=== PATIENT | female | born 1950 | race Caucasian/White ===

== ENCOUNTER 2016-12-02 11:38 | Emergency (ER) ==
[2016-12-02 11:45] VITALS: BP 165/86; TEMP 98.6; BMI 30.2
--- NOTE | 2016-12-02 12:02 | ED.PDOC ---
General ED Provider: Dr. MARINA OVALLE Chief Complaint: Shoulder Pain/Injury Stated Complaint: she pulled the mattress on saturday, on saturday she started having pain in rt shoulder blade area, today morning woke up and noticed some loss of gripp in rt hand. no slurry speach, Time Seen by Physician: 12:00 Mode of Arrival: Walk-In Information Source: Patient Primary Care Provider: KEARA JO Nursing and Triage Documentation Reviewed and Agree: Yes Musculoskeletal Complaint Exam - Shoulder Pain Complaint/Exam Mechanism of Injury: Reports: No known trauma Symptoms Are: Still present Timing: Constant Initial Severity: Mild Current Severity: Mild Location: Reports: Discrete Character: Reports: Dull, Aching Alleviating: Reports: Rest Aggravating: Reports: Movement, Lifting Associated Signs and Symptoms: Reports: Weakness, Numbness Non-Orthopedic Risk Factors: Reports: None DVT Risk Factors: Reports: None Septic Arthritis Risk Factors: Reports: None Related Surgical History: Reports: None Shoulder Findings: Absent: Swelling, Ecchymosis, Abnormal contour, Rotation Differential Diagnoses: Arthritis, Rotator Cuff Injury, Sprain, Other (stroke.) Review of Systems - Review Of Systems Constitutional: Reports: No symptoms Eyes: Reports: No symptoms Ears, Nose, Mouth, Throat: Reports: No symptoms Respiratory: Reports: No symptoms Cardiac: Reports: No symptoms GI: Reports: No symptoms : Reports: No symptoms Musculoskeletal: Reports: Back pain, Joint pain Skin: Reports: No symptoms Neurological: Reports: Weakness Endocrine: Reports: No symptoms Hematologic/Lymphatic: Reports: No symptoms All Other Systems: Reviewed and Negative Past Medical History - Past Medical History Previously Healthy: Yes Endocrine: Reports: None Cardiovascular: Reports: Hypertension Respiratory: Reports: None Hematological: Reports: None Gastrointestinal: Reports: Unknown Genitourinary: Reports: Kidney stones Neuro/Psych: Reports: None Musculoskeletal: Reports: Joint Pain (POST BILATERAL KNEE REPLACEMENT) Cancer: Reports: None Last Menstrual Period: NONE Other Pertinent Past Medical History: DIARHEA FEVER EMESIS 20 MIN AGO - Surgical History General Surgical History: Reports: Hysterectomy, (X2), Orthopedic ( BILATERAL KNEE REPLACEMENT, WRIST ), Other (BILATERAL CATARACTS) - Family History Family History: Reports: Unknown - Social History Smoking Status: Never smoker Hx Substance Use: No Alcohol Screening: None Physical Exam - Physical Exam Appearance: Well-appearing, No pain distress, Well-nourished Eyes: MINI, EOMI, Conjunctiva clear ENT: Ears normal, Nose normal, Oropharynx normal Respiratory: Airway patent, Breath sounds clear, Breath sounds equal, Respirations nonlabored Cardiovascular: RRR, Pulses normal, No rub, No murmur GI/: Soft, Nontender, No masses, Bowel sounds normal, No Organomegaly Musculoskeletal: Normal strength, ROM intact, No edema, No calf tenderness Skin: Warm, Dry, Normal color Neurological: Sensation intact, Motor intact (gripp in rt hand is weaker than left.), Reflexes intact, Cranial nerves intact, Alert, Oriented Psychiatric: Affect appropriate, Mood appropriate Interpretation - Radiology Interpretation Radiology Interpretation By: Radiologist Radiology Results: Negative Exam Interpreted: CT Scan Critical Care Note - Critical Care Note Total Time (mins): 0 Course - Course Orders, Labs, Meds: Orders Category Date Time Status CT CERVICAL SPINE W/O CONTRAST Stat RADS 12/02/16 12:[address] HEAD W/O CONTRAST Stat RADS 12/02/16 11:59 Completed Vital Signs: Temp Pulse Resp BP Pulse Ox 12/02/16 11:39 98.6 F 73 20 165/86 H 97 Departure - Departure Time of Disposition: 12:55 Disposition: HOME SELF-CARE Discharge Problem: Shoulder pain Instructions: Cervical Radiculopathy (ED) Condition: Stable Pt referred to PMD for follow-up: Yes Additional Instructions: Tylenol prn asa 81 po daily with food. needs evaluation carpal tunnel Allergies/Adverse Reactions: Allergies No Known Allergies Allergy (Verified 12/02/16 11:42) Home Medications: Ambulatory Orders Amlodipine Besylate/Benazepril [Lotrel 10-40 mg Capsule] 1 each PO DAILY Disposition Discussed With: Patient
--- NOTE | 2016-12-02 12:26 | CT ---
EXAM: CT scan of the head without contrast HISTORY: Weak key holder on the right hand TECHNIQUE: Imaging of the head was performed without contrast. 5 mm thin axial images and coronal and sagittal images were provided for interpretation. Comparison none FINDINGS: The barrera-white interface appears normal. The lateral ventricles and cortical sulci are n ormal. No acute hemorrhages are seen. There is no mass effect. The basal cisterns are patent. Th e paranasal sinuses and mastoid air cells are clear. The calvarium appears normal. The extracrania l soft tissues are normal. IMPRESSION: No acute intracranial abnormalities are seen. Chronic small vessel ischemic changes seen within the supratentorial white matter.
--- NOTE | 2016-12-02 12:38 | CT ---
EXAM: CT scan of the cervical spine without contrast HISTORY: Right arm and hand tingling, weakness TECHNIQUE: Imaging of the cervical spine was performed without contrast. Sagittal and coronal lakshmi nstructions and axial images were provided for interpretation. FINDINGS: The occipital condyles, C1 ring appear intact. The odontoid process and C2 vertebral bod y appear normal. No acute fractures are seen. The prevertebral soft tissues are normal. Segmental analysis: C2-C3: The central canal and neural foramina appear patent. C3-C4: There is facet joint and uncinate hypertrophy resulting in mild to moderate right and mild l eft foraminal stenosis. There is mild narrowing of the central canal. C4-C5: There is mild narrowing of the central canal. There is uncinate and facet joint degeneratio n resulting in moderate left and mild right foraminal stenosis. C5-C6: There is cervical spondylosis resulting in mild central canal stenosis. The thecal sac sophia ures 8.5 mm AP. There is uncinate and facet joint degeneration resulting in moderate bilateral fora perla stenosis, left greater right. C6-C7: There is cervical spondylosis resulting in mild to moderate central canal stenosis. The the anuj sac measures 7.4 mm AP. There is uncinate hypertrophy bilaterally resulting in mild foraminal s tenosis. C7-T1: The central canal and neural foramina appear adequately patent. IMPRESSION: There is cervical spondylosis resulting in central canal stenosis seen within the lower cervical spine as described above at the C5-C6 and C6-C7 disc spaces. Multilevel foraminal stenosis seen throughout the cervical spine as described above secondary to unc overtebral joint and facet joint arthritis. No acute fractures are seen within the cervical spine.
== END 2016-12-02 12:59 | disposition home or self-care (01) ==
LOC: ED 11:38
DX: M25.511 Pain in right shoulder (principal); R53.1 Weakness; M54.12 Radiculopathy, cervical region
CPT/HCPCS: 99282

== ENCOUNTER 2018-03-17 09:44 | Outpatient (CLI) ==
--- NOTE | 2018-03-17 11:07 | DEXA ---
EXAM: Bone Densitometry DEXA HISTORY: Osteopenia, postmenopausal COMPARISON: None FINDINGS: DEXA scan of the lumbar spine was performed. Quality of the study is good. Bone mineral density is 1 .229 grams per square centimeter. T-score is 0.4. Z-score is 2.4. DEXA scan right and left hip was performed. Quality of the study is good. Bone mineral density tota l mean is 0.795 grams per square centimeter. T-score is negative 1.7. Z-score is negative 0.1. Bone mineral density of the femoral neck mean is 0.817 with a T score of negative 1.6 and a Z score of 0. 2. IMPRESSION: 1. Lumbar spine: Normal bone marrow density. 2. Right and left hip: Osteopenia 3. Right and left femoral neck: Osteopenia 4. 10 year risk for major osteoporotic fracture is 16% and for hip fracture is 2.5%. Reference Values according to World Health Organization criteria: T score greater than -1 is normal T score -1 to -2.5 is osteopenia T score less than -2.5 is osteoporosis.
== END 2018-03-17 09:45 | disposition home or self-care (01) ==
LOC: RAD 09:44
PROVIDERS: ATTEND Family Medicine
DX: M85.80 Other specified disorders of bone density and structure, unspecified site (principal); Z78.0 Asymptomatic menopausal state

== ENCOUNTER 2018-04-07 08:52 | Outpatient (CLI) ==
--- NOTE | 2018-04-07 09:50 | DI ---
Exam: Chest two-view History: Cough FINDINGS: Normal cardiomediastinal contours. Normal pulmonary vasculature. The lungs are clear. A therosclerotic calcification of the aorta. No acute chest wall abnormality. Impression: No acute cardiopulmonary disease.
--- NOTE | 2018-04-07 10:31 | MAMMO ---
EXAM: Bilateral digital screening mammogram (2-D and 3-D) History: Screening Comparison: Bilateral mammogram 01/27/2016 Findings: MLO and CC views of bilateral breasts demonstrate scattered fibroglandular breast parenchy ma. CAD was reviewed by the radiologist. Tomosynthesis was performed. Stable benign intramammary l ymph node within the right breast. Stable benign right breast calcifications. There are no dominant masses, no suspicious microcalcifications and no architectural distortions Impression: Benign stable mammogram. Recommend followup routine screening mammography in 1 year. BIRADS 2
== END 2018-04-07 08:53 | disposition home or self-care (01) ==
LOC: RAD 08:52
PROVIDERS: ATTEND Family Medicine
DX: Z12.31 Encounter for screening mammogram for malignant neoplasm of breast (principal); R05 Cough
CPT/HCPCS: 77067